=== PATIENT | female | born 1995 | race Caucasian/White ===

== ENCOUNTER 2016-06-30 19:59 | Emergency (ER) | payer OTHER | END 2016-06-30 22:24 | disposition home or self-care (01) | LOC: ER 19:59 | PROC: 2W3DX1Z Immobilization of Left Lower Arm using Splint (ICD-10-PCS; principal; 2016-06-30) | DX: S60.212A Contusion of left wrist, initial encounter (principal); Z88.1 Allergy status to other antibiotic agents; Z88.2 Allergy status to sulfonamides; W06.XXXA Fall from bed, initial encounter | CPT/HCPCS: 73110-LT; 99284; A9270-GY ==